=== PATIENT | male | born 1990 | race Caucasian/White ===

== ENCOUNTER → 2018-02-10 | Emergency (ER) | payer OTHER ==
[~2018-02-10] VITALS: Ht 167.6 cm; Wt 68.9 kg
== END | disposition home or self-care (01) ==
LOC: ER 21:06
DX: R10.84 Generalized abdominal pain (principal)

== ENCOUNTER 2019-03-18 19:09 | Emergency (ER) | payer OTHER ==
[~2019-03-18] VITALS: Ht 167.6 cm; Wt 67.1 kg
== END 2019-03-18 22:56 | disposition home or self-care (01) ==
LOC: ER 19:09
DX: I34.1 Nonrheumatic mitral (valve) prolapse (principal); R07.89 Other chest pain

== ENCOUNTER 2020-04-04 15:47 | Emergency (ER) | payer OTHER ==
[~2020-04-04] VITALS: Ht 167.6 cm; Wt 75.7 kg
== END 2020-04-04 18:52 | disposition home or self-care (01) ==
LOC: ER 15:47
DX: R00.2 Palpitations (principal); F41.8 Other specified anxiety disorders; Z03.818 Encounter for observation for suspected exposure to other biological agents ruled out

== ENCOUNTER 2020-10-02 13:34 | Emergency (ER) | payer OTHER ==
[~2020-10-02] VITALS: Ht 167.6 cm; Wt 69.9 kg
[2020-10-02] MEDS ORDERED: KETO10TA2 PO (17:16)
[2020-10-02] MEDS ORDERED: PEPCID AC20 MG PO (17:16)
[2020-10-02] MEDS ORDERED: IVERMECTIN3 MG PO (17:16)
[2020-10-02] MEDS ORDERED: ZITHROMAX500 MG PO (17:16)
[2020-10-02] MEDS ORDERED: ACETAMINOPHEN500 M2 (17:18)
== END 2020-10-02 18:31 ==
LOC: ER 13:34
DX: R50.9 Fever, unspecified (principal); R10.9 Unspecified abdominal pain; R07.9 Chest pain, unspecified; Z20.828 Contact with and (suspected) exposure to other viral communicable diseases

== ENCOUNTER 2020-10-04 09:30 | Outpatient (CLI) | payer OTHER ==
[~2020-10-04 09:30] MED LIST: ACETAMINOPHEN500 M2; IVERMECTIN3 MG PO; KETO10TA2 PO; PEPCID AC20 MG PO; ZITHROMAX500 MG PO
== END 2020-10-04 11:30 | disposition home or self-care (01) ==
LOC: ASH CLINIC 09:30
PROVIDERS: ATTEND General Practice
DX: Z23 Encounter for immunization (principal); U07.1 COVID-19

== ENCOUNTER 2020-10-11 21:19 | Emergency (ER) | payer OTHER ==
[~2020-10-11] VITALS: Ht 167.6 cm; Wt 72.6 kg
== END 2020-10-11 22:29 | disposition home or self-care (01) ==
LOC: ER 21:19
DX: U07.1 COVID-19 (principal)

== ENCOUNTER 2021-01-23 20:27 | Emergency (ER) | payer OTHER ==
[~2021-01-23] VITALS: Ht 167.6 cm; Wt 68.0 kg
== END 2021-01-24 | disposition home or self-care (01) ==
LOC: ER 20:27
DX: U07.1 COVID-19 (principal)

== ENCOUNTER 2021-05-05 20:47 | Emergency (ER) | payer OTHER ==
[~2021-05-05] VITALS: Ht 167.6 cm; Wt 81.6 kg
[2021-05-06] MEDS ORDERED: VISTARIL50 MG PO (00:57)
[2021-05-06] MEDS ORDERED: NORFLEX100MG PO (00:57)
[2021-05-06] MEDS ORDERED: KETO10TA2 PO (00:57)
[2021-06-05] MEDS ORDERED: PHENAGIL TABLE1 EACH PO (04:12)
== END 2021-05-06 01:35 | disposition home or self-care (01) ==
LOC: ER 20:47 → EDSEX 20:50 → ER 05-06 01:35
DX: R07.89 Other chest pain (principal); F41.9 Anxiety disorder, unspecified; Z20.822 Contact with and (suspected) exposure to COVID-19

== ENCOUNTER → 2021-06-04 | Emergency (ER) | payer OTHER ==
[~2021-06-04] VITALS: Ht 167.6 cm; Wt 81.6 kg
[~2021-06-04] MED LIST changes: +NORFLEX100MG PO; +PHENAGIL TABLE1 EACH PO; +VISTARIL50 MG PO
== END | disposition home or self-care (01) ==
LOC: ER 23:39
DX: B34.9 Viral infection, unspecified (principal); R50.9 Fever, unspecified; Z20.822 Contact with and (suspected) exposure to COVID-19

== ENCOUNTER 2021-06-05 17:54 | Emergency (ER) | payer OTHER ==
[~2021-06-05] VITALS: Ht 167.6 cm; Wt 81.6 kg
== END 2021-06-05 22:41 | disposition home or self-care (01) ==
LOC: ER 17:54
DX: A05.9 Bacterial foodborne intoxication, unspecified (principal); Z20.822 Contact with and (suspected) exposure to COVID-19

== ENCOUNTER 2021-09-17 22:45 | Emergency (ER) | payer OTHER ==
[~2021-09-17] VITALS: Ht 167.6 cm; Wt 81.6 kg
[2021-09-18] MEDS ORDERED: DICLOFENAC SOD100 MG PO (02:36)
[2021-09-18] MEDS ORDERED: ORPHENADRINE C100 MG PO (02:36)
== END 2021-09-18 02:41 | disposition home or self-care (01) ==
LOC: ER 22:45
DX: M54.50 Low back pain, unspecified (principal)

== ENCOUNTER 2022-06-25 19:28 | Emergency (ER) | payer OTHER ==
[~2022-06-25] VITALS: Ht 167.6 cm; Wt 79.4 kg
[~2022-06-25 19:28] MED LIST changes: +DICLOFENAC SOD100 MG PO; +ORPHENADRINE C100 MG PO
[2022-06-25] MEDS ORDERED: ZITHROMAX500 MG PO (21:59)
== END 2022-06-25 22:10 | disposition home or self-care (01) ==
LOC: ER 19:28
DX: B34.9 Viral infection, unspecified (principal); R00.2 Palpitations; R53.81 Other malaise; Z20.822 Contact with and (suspected) exposure to COVID-19

== ENCOUNTER 2024-07-04 00:02 | Emergency (ER) | payer OTHER ==
[~2024-07-04] VITALS: Ht 167.6 cm; Wt 91.6 kg
[2024-07-04] MEDS ORDERED: KETOROLAC TROMETHAMINE 60 MG VIAL IM ONE (06:05)
[2024-07-04] MEDS ORDERED: HYDROCODONE/CHLORPHEN P-STIREX 5 ML ML PO STA (06:05)
[2024-07-04] MEDS ORDERED: KETOROLAC TROMETHAMINE 60 MG VIAL IM STA (06:06)
== END 2024-07-04 06:25 | disposition home or self-care (01) ==
LOC: ER 00:02
DX: J06.9 Acute upper respiratory infection, unspecified (principal)